=== PATIENT | female | born 1955 | race Asian ===

== ENCOUNTER 2016-10-19 20:59 | Emergency (ER) | payer OTHER ==
[2016-10-19 21:51] LABS: BASO # 0.1 x10^3/uL (0.0-0.2); BASO % 1 % (0-3); EOS % 2 % (0-3); HEMATOCRIT 35.5 % (36.0-47.0); HEMOGLOBIN 12.1 g/dL (12.0-15.5); LYMPH # 2.2 x10^3/uL (1.0-4.8); LYMPH % 23 % (24-48); MEAN CORPUSCULAR HEMOGLOBIN 28 pg (25-35); MEAN CORPUSCULAR HGB CONC 34 g/dL (31-37); MEAN CORPUSCULAR VOLUME 83 fL (79-100); MONO % 8 % (0-9); NEUT % 65 % (31-73); PLATELET COUNT 279 x10^3/uL (140-400); RED BLOOD COUNT 4.27 x10^6/uL (3.50-5.40); RED CELL DISTRIBUTION WIDTH 13.4 % (11.5-14.5); WHITE BLOOD COUNT 9.3 x10^3/uL (4.0-11.0)
[2016-10-19 21:52] LABS: BILIRUBIN,URINE NEGATIVE (NEG); GLUCOSE,URINE NEGATIVE (NEG); NITRITE,URINE NEGATIVE (NEG); PROTEIN,URINE NEGATIVE (NEG-TRACE); UROBILINOGEN,URINE 0.2 mg/dL (0.2 mg/dL)
[2016-10-19 22:04] LABS: CALCIUM 8.6 mg/dL (8.5-10.1); CREATININE 0.7 mg/dL (0.6-1.0); GFR 84.5; POTASSIUM 3.5 mmol/L (3.5-5.1)
[2016-10-19 22:05] LABS: BACTERIA,URINE 0 /HPF (0-FEW); RBC,URINE 0 /HPF (0-2); SQUAMOUS EPITHELIAL CELL,UR FEW /LPF
[2016-10-19 22:09] LABS: ALBUMIN 3.5 g/dL (3.4-5.0); ALBUMIN/GLOBULIN RATIO 0.9 (1.0-1.7); TOTAL BILIRUBIN 0.5 mg/dL (0.2-1.0); TOTAL PROTEIN 7.4 g/dL (6.4-8.2)
[2016-10-19] MEDS ORDERED: CONTRAST GIVEN MC PRN (22:15)
[2016-10-19] MEDS ORDERED: IOHEXOL 300 MG/ML 75 ML VIAL IV ONE (22:15)
--- NOTE | 2016-10-19 22:50 | RAD ---
Indication: Abdominal pain. Axial imaging through the abdomen and pelvis was performed after the administration of intravenous contrast. One or more of the following individualized dose reduction techniques were utilized for this examination: 1. Automated exposure control 2. Adjustment of the mA and/or kV according to patient size 3. Use of iterative reconstruction technique The lung bases are clear. The liver is unremarkable. The gallbladder is contracted. The pancreas and spleen are unremarkable. No adrenal mass is detected. Kidneys are unremarkable apart from tiny cortical low densities within the right kidney suggestive of cysts. The aorta is nonaneurysmal. The small and large bowel loops are normal caliber. No obstruction is seen. There is moderate stool in the right colon. The uterus and bladder are unremarkable. There is no ascites. No acute inflammatory process is identified. IMPRESSION: Essentially unremarkable CT of the abdomen and pelvis. No acute abnormality is detected. Electronically signed by: Owen Hassan MD (10/19/2016 10:47 PM) [facility]
--- NOTE | 2016-10-19 23:02 | EKG ---
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
[2016-10-19] MEDS ORDERED: OMEP20TA63 PO (23:59)
--- NOTE | 2016-10-19 23:59 | PHYS DOC ---
Past Medical History Past Medical History: Asthma, Diabetes-Type I, Hypertension Adult General Chief Complaint Chief Complaint: ABDOMINAL PAIN HPI HPI Patient is a 61 year old female with a history significant for hypertension and diabetes who presents here today complaining of midepigastric abdominal pain. Patient has any liver longer kidney problems. Patient has had no prior surgeries. Patient not smoke drink or do drugs. Patient has no known drug allergies. Patient has any fevers shakes chills nausea vomiting diarrhea. Patient reports having chronic cough. Patient has a dysuria frequency or urgency. Patient pressure less by mouth intake was one hour ago, her son reports that she ate rice with any problems. Review of systems: Constitutional: Denies fever or chills Eyes: Denies change in visual acuity, redness, or eye pain HENT: Denies nasal congestion or sore throat All other review systems are negative except as documented in the history of present illness portion. Physical exam: Constitutional: Cachectic appearing no acute distress, non-toxic appearance. HENT: Normocephalic, atraumatic, bilateral external ears normal, oropharynx moist, no oral exudates, nose normal. Eyes: PERRLA, EOMI, conjunctiva normal, no discharge. Neck: Normal range of motion, no tenderness, supple, no stridor Cardiovascular:Heart rate regular rhythm Lungs & Thorax: Bilateral breath sounds clear to auscultation Abdomen: Soft nondistended no rebound or guarding no tenderness at McBurney's point, Arteaga's sign, patient has normal active bowel sounds, she has mild diffuse tenderness to palpation. Patient with mild tenderness to palpation in midepigastric area. Skin: Warm, dry, no erythema, no rash. Back: No tenderness, no CVA tenderness. Patient has pain to his lower back or reports this is chronic. Patient has no new tenderness Extremities: No tenderness, no cyanosis, no clubbing, ROM intact, no edema. Neurologic: Alert and oriented X 3, normal motor function, normal sensory function, no focal deficits noted. Psychologic: Affect normal, judgement normal, mood normal. Patient's ER workup was significant for a CT scan that was unremarkable. No acute pathology. CBC CMP UA were all normal. Patient received Dilaudid and Zofran and IV fluids in the ER feels much improved. Assessment and plan Fadumo. Unclear etiology. Patient will be discharged home in stable condition. Patient be started on Prilosec for likely gastritis. Current Medications Current Medications Current Medications Medications (Trade) Dose Ordered Sig/Cruz Start Time Stop Time Status Last Admin Dose Admin Info (Do NOT chart on this entry -- for MONITORING) 1 each PRN DAILY PRN 10/19/16 22:15 10/21/16 22:14 Iohexol (Omnipaque 300 Mg/ml) 75 ml 1X ONCE 10/19/16 22:15 10/19/16 22:16 DC 10/19/16 22:37 75 ML Allergies Allergies Allergies Coded Allergies Type Severity Reaction Last Updated Verified No Known Drug Allergies 10/19/16 No Current Patient Data Vital Signs Vital Signs Date Time Temp Pulse Resp B/P (MAP) Pulse Ox O2 Delivery O2 Flow Rate FiO2 10/19/16 23:23 98.4 102 18 138/74 (95) 98 Room Air 98.4 Lab Values Laboratory Tests Test 10/19/16 21:30 White Blood Count 9.3 x10^3/uL (4.0-11.0) Red Blood Count 4.27 x10^6/uL (3.50-5.40) Hemoglobin 12.1 g/dL (12.0-15.5) Hematocrit 35.5 % (36.0-47.0) L Mean Corpuscular Volume 83 fL (79-100) Mean Corpuscular Hemoglobin 28 pg (25-35) Mean Corpuscular Hemoglobin Concent 34 g/dL (31-37) Red Cell Distribution Width 13.4 % (11.5-14.5) Platelet Count 279 x10^3/uL (140-400) Neutrophils (%) (Auto) 65 % (31-73) Lymphocytes (%) (Auto) 23 % (24-48) L Monocytes (%) (Auto) 8 % (0-9) Eosinophils (%) (Auto) 2 % (0-3) Basophils (%) (Auto) 1 % (0-3) Neutrophils # (Auto) 6.1 x10^3uL (1.8-7.7) Lymphocytes # (Auto) 2.2 x10^3/uL (1.0-4.8) Monocytes # (Auto) 0.8 x10^3/uL (0.0-1.1) Eosinophils # (Auto) 0.2 x10^3/uL (0.0-0.7) Basophils # (Auto) 0.1 x10^3/uL (0.0-0.2) Urine Collection Type Unknown Urine Color Yellow Urine Clarity Clear Urine pH 6.0 Urine Specific [place] <=1.005 Urine Protein Negative mg/dL (NEG-TRACE) Urine Glucose (UA) Negative mg/dL (NEG) Urine Ketones (Stick) Negative mg/dL (NEG) Urine Blood Negative (NEG) Urine Nitrite Negative (NEG) Urine Bilirubin Negative (NEG) Urine Urobilinogen Dipstick 0.2 mg/dL (0.2 mg/dL) Urine Leukocyte Esterase Moderate (NEG) Urine RBC 0 /HPF (0-2) Urine WBC 1-4 /HPF (0-4) Urine Squamous Epithelial Cells Few /LPF Urine Bacteria 0 /HPF (0-FEW) Sodium Level 140 mmol/L (136-145) Potassium Level 3.5 mmol/L (3.5-5.1) Chloride Level 104 mmol/L (98-107) Carbon Dioxide Level 24 mmol/L (21-32) Anion Gap 12 (6-14) Blood Urea Nitrogen 8 mg/dL (7-20) Creatinine 0.7 mg/dL (0.6-1.0) Estimated GFR (Cockcroft-Gault) 84.5 BUN/Creatinine Ratio 11 (6-20) Glucose Level 209 mg/dL (70-99) H Calcium Level 8.6 mg/dL (8.5-10.1) Total Bilirubin 0.5 mg/dL (0.2-1.0) Aspartate Amino Transferase (AST) 19 U/L (15-37) Alanine Aminotransferase (ALT) 17 U/L (14-59) Alkaline Phosphatase 102 U/L (46-116) Troponin I Quantitative < 0.017 ng/mL (0.000-0.055) Total Protein 7.4 g/dL (6.4-8.2) Albumin 3.5 g/dL (3.4-5.0) Albumin/Globulin Ratio 0.9 (1.0-1.7) L Lipase 252 U/L (73-393) Laboratory Tests 10/19/16 21:30 Laboratory Tests 10/19/16 21:30 EKG EKG [] Radiology/Procedures Radiology/Procedures [] Course & Med Decision Making Course & Med Decision Making Pertinent Labs and Imaging studies reviewed. (See chart for details) [] Dragon Disclaimer Dragon Disclaimer This electronic medical record was generated, in whole or in part, using a voice recognition dictation system. Departure Departure Impression: Primary Impression: Gastritis Additional Impression: Abdominal pain Disposition: HOME, SELF-CARE Condition: IMPROVED Referrals: NANDO PACKER MD (PCP) Patient Instructions: Abdominal Pain, Gastritis, Adult, Ctgs-[id number] Scripts Omeprazole Magnesium (PRILOSEC OTC) 20 Mg Tablet.dr 1 TAB PO DAILY, #30 TAB 3 Refills Prov: CORDELIA SHERMAN MD 10/19/16 Problem Qualifiers CORDELIA SHERMAN MD Oct 19, 2016 23:59
[2016-10-20 00:07] VITALS: BP 150/77
== END 2016-10-20 00:09 | disposition home or self-care (01) ==
LOC: ER 20:59
DX: K29.70 Gastritis, unspecified, without bleeding (principal); E10.9 Type 1 diabetes mellitus without complications; I10 Essential (primary) hypertension; J45.909 Unspecified asthma, uncomplicated
CPT/HCPCS: 36415; 74177; 80053; 81001; 83690; 84484; 85025; 87086; 93005; 99285; Q9967

== ENCOUNTER 2017-02-18 14:13 | Emergency (ER) | payer OTHER ==
[~2017-02-18] VITALS: Ht 152.4 cm; Wt 63.5 kg
[~2017-02-18 14:13] MED LIST: OMEP20TA63 PO
[2017-02-18 14:38] VITALS: BP 171/82
--- NOTE | 2017-02-18 15:13 | RAD ---
Indication: Lateral pain after a fall. Technique: 3 views of the right foot are submitted for review. No comparison is available. Findings: There is a subtle linear lucency in the base of the fifth metatarsal, could represent nutrient channel although nondisplaced fracture is not excluded. Please correlate with symptoms. If strong clinical suspicion, short term follow-up can be considered. Otherwise, no fracture or dislocation is apparent. Impression: Suspected subtle acute traumatic fracture of the base of the fifth metatarsal.
--- NOTE | 2017-02-18 15:42 | PHYS DOC ---
Past Medical History Past Medical History: Asthma, Diabetes-Type I, Hypertension Past Surgical History: No Surgical History Alcohol Use: Occasionally Drug Use: None Adult General Chief Complaint Chief Complaint: LOWEREXTREMITY INJURY [facility] HPI Patient is a 61 year old female who presents with right foot pain that began after a fall today. They did use ice to control pain and swelling and presented to the ED. Review of Systems Review of Systems Constitutional: Denies fever or chills [] Respiratory: Denies cough or shortness of breath [] Cardiovascular: No additional information not addressed in HPI [] Musculoskeletal: see HPI Integument: Denies rash or skin lesions [] Neurologic: Denies headache, focal weakness or sensory changes [] Endocrine: Denies polyuria or polydipsia [] All other systems were reviewed and found to be within normal limits, except as documented in this note. Allergies Allergies Allergies Coded Allergies Type Severity Reaction Last Updated Verified No Known Drug Allergies 10/19/16 No Physical Exam Physical Exam Constitutional: Well developed, well nourished, no acute distress, non-toxic appearance. [] Cardiovascular:Heart rate regular rhythm, no murmur [] Lungs & Thorax: Bilateral breath sounds clear to auscultation [] Abdomen: Bowel sounds normal, soft, no tenderness, no masses, no pulsatile masses. [] Extremities: There is erythema and mild swelling to the base of the fifth metatarsal, range of motion is limited due to pain, Neurologic: Alert and oriented X 3, normal motor function, normal sensory function, no focal deficits noted. [] Psychologic: Affect normal, judgement normal, mood normal. [] Current Patient Data Vital Signs Vital Signs Date Time Temp Pulse Resp B/P (MAP) Pulse Ox O2 Delivery O2 Flow Rate FiO2 02/18/17 14:38 98.4 115 18 100 Room Air 98.4 EKG EKG [] Radiology/Procedures Radiology/Procedures []PATIENT: ADRIEN CEDENO ACCOUNT: [id number] : 1955 LOCATION: ER AGE: 61 SEX: F EXAM STATUS: REG ER ORD. PHYSICIAN: ALL BLANDON APRN REASON: fell PROCEDURE: FOOT RIGHT 3V Indication: Lateral pain after a fall. Technique: 3 views of the right foot are submitted for review. No comparison is available. Findings: There is a subtle linear lucency in the base of the fifth metatarsal, could represent nutrient channel although nondisplaced fracture is not excluded. Please correlate with symptoms. If strong clinical suspicion, short term follow-up can be considered. Otherwise, no fracture or dislocation is apparent. Impression: Suspected subtle acute traumatic fracture of the base of the fifth metatarsal. DICTATED and SIGNED BY: GREGORY VALDES MD DATE: 02/18/17 1433 CC: ALL BLANDON APRN; NANDO PACKER MD; NON,STAFF ~ Course & Med Decision Making Course & Med Decision Making Pertinent Labs and Imaging studies reviewed. (See chart for details) []1. Metatarsal fracture Your foot has been placed in a postop shoe. You've also been given a small amount of pain medication. Do not drive or operate heavy machinery while taking this medication. Follow-up with your primary care provider or a genetic technologist in 3 days for a follow-up check on your fracture. Dragon Disclaimer Dragon Disclaimer This electronic medical record was generated, in whole or in part, using a voice recognition dictation system. Departure Departure Referrals: NANDO PACKER MD (PCP) Scripts Hydrocodone/Apap 5-325 (NORCO 5-325 TABLET) 1 Each Tablet 1 TAB PO PRN Q6HRS Y for PAIN, #10 TAB 0 Refills Prov: ALL BLANDON APRN 02/18/17 ALL BLANDON APRN Feb 18, 2017 15:42
[2017-02-18] MEDS ORDERED: HYDR-971 PO (15:44)
== END 2017-02-18 15:50 | disposition home or self-care (01) ==
LOC: ER 14:13
DX: S92.351A Displaced fracture of fifth metatarsal bone, right foot, initial encounter for closed fracture (principal); J45.909 Unspecified asthma, uncomplicated; E10.9 Type 1 diabetes mellitus without complications; I10 Essential (primary) hypertension; W18.39XA Other fall on same level, initial encounter; Y93.89 Activity, other specified; Y92.89 Other specified places as the place of occurrence of the external cause; Y99.8 Other external cause status
CPT/HCPCS: 73630; 99284

== ENCOUNTER 2017-03-03 12:19 | Emergency (ER) | payer OTHER ==
[2017-03-03] MEDS: IBUPROFEN 400 MG TABLET. PO (12:54)
[2017-03-03] MEDS: HYDROcodone/APAP 5/325MG 1 TAB TABLET PO (12:55)
[2017-03-03] MEDS ORDERED: DEXAMETHASONE 4 MG TABLET PO (15:00)
== END 2017-03-03 14:58 | disposition home or self-care (01) ==
LOC: ER 12:19
DX: M25.531 Pain in right wrist (principal); M25.532 Pain in left wrist; M79.632 Pain in left forearm; M79.631 Pain in right forearm; I10 Essential (primary) hypertension; E10.9 Type 1 diabetes mellitus without complications; J45.909 Unspecified asthma, uncomplicated; W18.30XA Fall on same level, unspecified, initial encounter; Y93.89 Activity, other specified; Y99.8 Other external cause status; Y92.89 Other specified places as the place of occurrence of the external cause
CPT/HCPCS: 73110; 73130; 99284

== ENCOUNTER 2017-09-03 22:44 | Inpatient (IN) | payer OTHER ==
[2017-09-03] MEDS: IV NORMAL SALINE 1000ML BAG 1,000 ML IV (23:55)
[2017-09-04 00:10] LABS: BASO # 0.1 x10^3/uL (0.0-0.2); BASO % 1 % (0-3); EOS % 0 % (0-3); HEMATOCRIT 35.2 % (36.0-47.0); HEMOGLOBIN 12.1 g/dL (12.0-15.5); LYMPH # 1.2 x10^3/uL (1.0-4.8); LYMPH % 6 % (24-48); MEAN CORPUSCULAR HEMOGLOBIN 28 pg (25-35); MEAN CORPUSCULAR HGB CONC 34 g/dL (31-37); MEAN CORPUSCULAR VOLUME 83 fL (79-100); MONO # 1.5 x10^3/uL (0.0-1.1); MONO % 8 % (0-9); NEUT # 15.6 x10^3uL (1.8-7.7); NEUT % 85 % (31-73); PLATELET COUNT 258 x10^3/uL (140-400); RED BLOOD COUNT 4.26 x10^6/uL (3.50-5.40); RED CELL DISTRIBUTION WIDTH 13.2 % (11.5-14.5); WHITE BLOOD COUNT 18.5 x10^3/uL (4.0-11.0)
[2017-09-04] MEDS: DEXAMETHASONE SOD PHOS 20 MG/5 ML VIAL. IV (00:12)
[2017-09-04 00:13] LABS: ADD MAN DIFF? YES
[2017-09-04 00:21] LABS: ANION GAP 11 (6-14); BLOOD UREA NITROGEN 10 mg/dL (7-20); CALCIUM 8.5 mg/dL (8.5-10.1); CARBON DIOXIDE 23 mmol/L (21-32); CHLORIDE 100 mmol/L (98-107); CREATININE 0.7 mg/dL (0.6-1.0); GFR 84.2; GLUCOSE 121 mg/dL (70-99); SODIUM 134 mmol/L (136-145)
[2017-09-04] MEDS: IV NORMAL SALINE 1000ML BAG 1,000 ML IV ×3 (00:58→05:47)
[2017-09-04] MEDS: ACETAMINOPHEN 325 MG TABLET. PO ×2 (01:48→13:32)
[2017-09-04 01:51] LABS: % BANDS 8 % (0-9); % BASOS 1 % (0-3); % LYMPHS 6 % (24-48); % MONOS 2 % (0-10); % SEGS 83 % (35-66); PLT ESTIMATE ADEQUATE (ADEQUATE)
[2017-09-04] MEDS ORDERED: ONDANSETRON PF 4 MG/2 ML VIAL. IV (03:30)
[2017-09-04] MEDS ORDERED: CONTRAST GIVEN. MC (04:00)
[2017-09-04] MEDS: AZITHROMYCIN 250 MG TABLET. PO (04:01)
[2017-09-04] MEDS: IOHEXOL 300 MG/ML 100ML VIAL. IV (04:10)
[2017-09-04 04:21] LABS: LACTIC ACID 0.9 mmol/L (0.4-2.0)
[2017-09-04 07:15] LABS: NEGATIVE OBC STREP NEG; POSITIVE OBC STREP POS
[2017-09-04] MEDS: IPRATRPIUM/ALBUTEROL 0.5/2.5MG 3 ML NEBU. NEB ×2 (11:16→15:30)
[2017-09-04] MEDS: BENZONATATE 100 MG CAPSULE. PO (13:32)
[2017-09-04] MEDS: CETIRIZINE HCL 10 MG TABLET. PO (13:32)
[2017-09-04] MEDS: CAPSAICIN 0.025% TOPICAL CREAM 60GM TUBE. TP (13:33)
[2017-09-04] MEDS ORDERED: MONTELUKAST SODIUM 10 MG TABLET. PO (21:00)
[2017-09-04] MEDS ORDERED: KETOTIFEN FUMARATE 0.025% OPHTH SOLUTION BOTTLE. OU (21:00)
[2017-09-04] MEDS ORDERED: SIMVASTATIN 10 MG TABLET PO (21:00)
[2017-09-05] MEDS ORDERED: ASPIRIN CHEWABLE 81 MG TABLET. PO (08:00)
[2017-09-05] MEDS ORDERED: cefTRIAXone IV Push 1 GM VIAL. IVP (09:00)
[2017-09-05] MEDS ORDERED: AZITHROMYCIN 500 MG in IV NORMAL SALINE 250ML 250 ML IV (09:00)
[2017-09-06] MEDS ORDERED: metFORMIN 500 MG TABLET PO (09:00)
== END 2017-09-04 18:08 | disposition home or self-care (01) | DRG 871 ==
LOC: 5 NORTH 09-04 03:04 → ER 22:44
DX: A41.9 Sepsis, unspecified organism (principal); J18.9 Pneumonia, unspecified organism; E87.1 Hypo-osmolality and hyponatremia; J45.901 Unspecified asthma with (acute) exacerbation; J02.9 Acute pharyngitis, unspecified; M79.1 Myalgia; R00.0 Tachycardia, unspecified; Z82.49 Family history of ischemic heart disease and other diseases of the circulatory system
CPT/HCPCS: 36415; 71045; 71275; 80048; 83605; 85007; 85025; 87040; 87070; 87880; 93005; 94640; 94760; 96361; 96374; 96375; 99285; 99285-25; J0690; J1100; J7030; J7620; Q0144; Q9967

== ENCOUNTER 2018-01-23 12:45 | Emergency (ER) | payer OTHER ==
[~2018-01-23] VITALS: Ht 152.4 cm; Wt 48.5 kg
[~2018-01-23 12:45] MED LIST changes: +ACET1TAB33 PO; +HYDR-971 PO; +MENT56CR TP
[2018-01-23 13:33] LABS: BASO # 0.1 x10^3/uL (0.0-0.2); BASO % 1 % (0-3); EOS # 0.1 x10^3/uL (0.0-0.7); EOS % 1 % (0-3); HEMATOCRIT 35.8 % (36.0-47.0); HEMOGLOBIN 12.4 g/dL (12.0-15.5); LYMPH # 1.4 x10^3/uL (1.0-4.8); LYMPH % 13 % (24-48); MEAN CORPUSCULAR HEMOGLOBIN 28 pg (25-35); MEAN CORPUSCULAR HGB CONC 35 g/dL (31-37); MEAN CORPUSCULAR VOLUME 81 fL (79-100); MONO # 0.8 x10^3/uL (0.0-1.1); MONO % 8 % (0-9); NEUT % 77 % (31-73); PLATELET COUNT 352 x10^3/uL (140-400); RED BLOOD COUNT 4.45 x10^6/uL (3.50-5.40); RED CELL DISTRIBUTION WIDTH 13.3 % (11.5-14.5); WHITE BLOOD COUNT 10.3 x10^3/uL (4.0-11.0)
[2018-01-23 13:44] LABS: CALCIUM 8.6 mg/dL (8.5-10.1); CREATININE 0.7 mg/dL (0.6-1.0); GFR 84.2; POTASSIUM 3.9 mmol/L (3.5-5.1)
--- NOTE | 2018-01-23 13:52 | PHYS DOC ---
Past Medical History Past Medical History: Asthma, Diabetes-Type II, Hypertension Additional Past Medical Histor: KIDNEYS? Past Surgical History: No Surgical History, Other Additional Past Surgical Histo: ARM Alcohol Use: None Drug Use: None Adult General Chief Complaint Chief Complaint: COUGH HPI HPI Patient is a 62-year-old female who presents with complaint of cough, congestion , shortness breath, sore throat and headache for the last 4-5 days. Patient indicates that cough has been productive sputum. Patient indicates that shortness of breath is worsened with exertion. Patient admits to soreness in her chest. She denies any vomiting or diarrhea. Symptoms are not improved with anything. Review of Systems Review of Systems Constitutional: Positive subjective fever[] HENT: Positive sore throat [] Respiratory: Positive cough and shortness of breath [] Cardiovascular: Positive chest soreness[] GI: Denies abdominal pain, nausea, vomiting or diarrhea [] Musculoskeletal: Complains of body aches[] Neurologic: Complains of headache[] All other systems were reviewed and found to be within normal limits, except as documented in this note. Current Medications Current Medications Current Medications Medications (Trade) Dose Ordered Sig/Cruz Start Time Stop Time Status Last Admin Dose Admin Info (CONTRAST GIVEN -- Rx MONITORING) 1 each PRN DAILY PRN 01/23/18 15:45 01/23/18 17:21 DC Iohexol (Omnipaque 300 Mg/ml) 75 ml 1X ONCE 01/23/18 16:00 01/23/18 16:01 DC 01/23/18 15:53 75 ML Allergies Allergies Allergies Coded Allergies Type Severity Reaction Last Updated Verified No Known Drug Allergies 10/19/16 No Physical Exam Physical Exam Constitutional: Well developed, well nourished, no acute distress, non-toxic appearance. [] HENT: Normocephalic, atraumatic, bilateral external ears normal, oropharynx moist, no oral exudates, nose normal. [] Eyes: PERRLA, EOMI, conjunctiva normal, no discharge. [] Neck: Normal range of motion, no tenderness, supple. [] Cardiovascular: Mildly tachycardic rate with regular rhythm [] Lungs & Thorax: There are fine rhonchi noted in the bilateral lung bases. Otherwise good air movement is noted throughout[] Abdomen: Bowel sounds normal, soft, no tenderness. [] Skin: Warm, dry, no erythema, no rash. [] Extremities: No tenderness, no cyanosis, no clubbing, ROM intact, no edema. [] Neurologic: Alert and oriented, no focal deficits noted. [] Current Patient Data Vital Signs Vital Signs Date Time Temp Pulse Resp B/P (MAP) Pulse Ox O2 Delivery O2 Flow Rate FiO2 01/23/18 17:06 98.4 109 18 142/75 (97) 97 Room Air 98.4 Lab Values Laboratory Tests Test 01/23/18 13:19 01/23/18 13:46 01/23/18 13:47 01/23/18 15:30 White Blood Count 10.3 x10^3/uL (4.0-11.0) Red Blood Count 4.45 x10^6/uL (3.50-5.40) Hemoglobin 12.4 g/dL (12.0-15.5) Hematocrit 35.8 % (36.0-47.0) L Mean Corpuscular Volume 81 fL (79-100) Mean Corpuscular Hemoglobin 28 pg (25-35) Mean Corpuscular Hemoglobin Concent 35 g/dL (31-37) Red Cell Distribution Width 13.3 % (11.5-14.5) Platelet Count 352 x10^3/uL (140-400) Neutrophils (%) (Auto) 77 % (31-73) H Lymphocytes (%) (Auto) 13 % (24-48) L Monocytes (%) (Auto) 8 % (0-9) Eosinophils (%) (Auto) 1 % (0-3) Basophils (%) (Auto) 1 % (0-3) Neutrophils # (Auto) 8.0 x10^3uL (1.8-7.7) H Lymphocytes # (Auto) 1.4 x10^3/uL (1.0-4.8) Monocytes # (Auto) 0.8 x10^3/uL (0.0-1.1) Eosinophils # (Auto) 0.1 x10^3/uL (0.0-0.7) Basophils # (Auto) 0.1 x10^3/uL (0.0-0.2) D-Dimer (Molly) 1.32 ug/mlFEU (0.00-0.50) H Sodium Level 139 mmol/L (136-145) Potassium Level 3.9 mmol/L (3.5-5.1) Chloride Level 102 mmol/L (98-107) Carbon Dioxide Level 25 mmol/L (21-32) Anion Gap 12 (6-14) Blood Urea Nitrogen 11 mg/dL (7-20) Creatinine 0.7 mg/dL (0.6-1.0) Estimated GFR (Cockcroft-Gault) 84.2 BUN/Creatinine Ratio 16 (6-20) Glucose Level 250 mg/dL (70-99) H Calcium Level 8.6 mg/dL (8.5-10.1) Total Bilirubin 0.4 mg/dL (0.2-1.0) Aspartate Amino Transferase (AST) 18 U/L (15-37) Alanine Aminotransferase (ALT) 19 U/L (14-59) Alkaline Phosphatase 118 U/L (46-116) H Troponin I Quantitative < 0.017 ng/mL (0.000-0.055) WW-Gay-B-Type Natriuretic Peptide 13 pg/mL (0-124) Total Protein 7.5 g/dL (6.4-8.2) Albumin 3.5 g/dL (3.4-5.0) Albumin/Globulin Ratio 0.9 (1.0-1.7) L Group A Streptococcus Rapid Negative (NEGATIVE) Influenza Type A Antigen Negative (NEGATIVE) Influenza Type B Antigen Negative (NEGATIVE) Urine Collection Type Unknown Urine Color Yellow Urine Clarity Clear Urine pH 6.0 Urine Specific [place] 1.010 Urine Protein Negative mg/dL (NEG-TRACE) Urine Glucose (UA) 100 mg/dL (NEG) Urine Ketones (Stick) Negative mg/dL (NEG) Urine Blood Negative (NEG) Urine Nitrite Negative (NEG) Urine Bilirubin Negative (NEG) Urine Urobilinogen Dipstick 0.2 mg/dL (0.2 mg/dL) Urine Leukocyte Esterase Negative (NEG) Urine RBC 0 /HPF (0-2) Urine WBC Occ /HPF (0-4) Urine Squamous Epithelial Cells Few /LPF Urine Bacteria 0 /HPF (0-FEW) Urine Mucus Slight /LPF Laboratory Tests 01/23/18 13:19 Laboratory Tests 01/23/18 13:19 EKG EKG [] Interpretation Time: Mildly tachycardic rate with regular rhythm. Heart rate of 106. Radiology/Procedures Radiology/Procedures [] Impressions: PROCEDURE: CT ANGIOGRAPHY CHEST CT pulmonary angiogram with intravenous contrast History: Shortness of breath. Possible pulmonary embolism Comparison: Same examination September 04, 2017. Technique: CT angiogram of the chest with attention to the pulmonary arteries was performed after the administration of intravenous contrast, 75 mL Omnipaque-300. Axial 2-D reconstructions were obtained. Coronal 3-D MIPS were obtained of the chest. Exposure: One or more of the following individualized dose reduction techniques were utilized for this examination: 1. Automated exposure control 2. Adjustment of the mA and/or kV according to patient size 3. Use of iterative reconstruction technique Findings: There is motion artifact at multiple levels. Both upper lobe pulmonary arteries are suboptimally opacified, presumably secondary to phase of bolus and time of scanning; main pulmonary artery as well as the lower lobe pulmonary arteries and right middle lobe pulmonary arteries are adequately opacified. There is no evidence of pulmonary embolism. Trachea and mainstem bronchi appear patent. Evaluation of thyroid is limited secondary to motion. No acute airspace disease is identified. No pneumothorax or pleural effusion is seen. No mediastinal lymphadenopathy is seen. Thoracic aorta has normal caliber. Heart and pericardium are unremarkable. Left upper lobe demonstrates small 3 mm nonspecific soft tissue pulmonary nodule (series 3 image 65), unchanged. Lower lobe demonstrates small soft tissue pulmonary nodule measuring 3 mm (series 3 image 74), not definitely seen on previous study, may have been obscured on previous study. Mild emphysema seen. Impression: 1. Limited examination, especially of upper lobe pulmonary arteries. No pulmonary embolism identified 2. No acute airspace disease identified. 3. Mild pulmonary emphysema. 4. Small soft tissue pulmonary nodules. By Fleischner Society 2017 guidelines, consider follow-up chest CT without contrast in 12 months. Electronically signed by: Beltran Vargas MD (01/23/2018 4:15 PM) [place] [id number] Course & Med Decision Making Course & Med Decision Making Pertinent Labs and Imaging studies reviewed. (See chart for details) [] Dragon Disclaimer Dragon Disclaimer This electronic medical record was generated, in whole or in part, using a voice recognition dictation system. Departure Departure Impression: Primary Impression: Bronchitis, acute Disposition: 01 HOME, SELF-CARE Condition: STABLE Referrals: NANDO PACKER MD (PCP) Patient Instructions: Acute Bronchitis Scripts Azithromycin (ZITHROMAX) 250 Mg Tablet 1 PKG PO UD, #6 TAB Prov: STEPHANIE ROWLAND Jr. DO 01/23/18 Problem Qualifiers Primary Impression: Bronchitis, acute Bronchitis organism: unspecified organism Qualified Codes: J20.9 - Acute bronchitis, unspecified STEPHANIE ROWLAND Jr. DO Jan 23, 2018 13:52
--- NOTE | 2018-01-23 13:52 | RAD ---
PA and lateral chest radiograph. History: Cough. Comparison: September 04, 2017. Findings: Cardiomediastinal silhouette is within normal limits for size. Bilateral lung wood appear clear without evidence of infiltrate, effusion, or pneumothorax. Impression: 1. No acute cardiopulmonary process. Electronically signed by: Beltran Vargas MD (01/23/2018 1:49 PM) [place] [id number]
[2018-01-23 13:53] LABS: ALBUMIN 3.5 g/dL (3.4-5.0); ALBUMIN/GLOBULIN RATIO 0.9 (1.0-1.7); TOTAL BILIRUBIN 0.4 mg/dL (0.2-1.0); TOTAL PROTEIN 7.5 g/dL (6.4-8.2)
--- NOTE | 2018-01-23 13:57 | EKG ---
[facility] [address] [place] [address] Test Date: 2018-01-23 Test Time: 13:31:12 Pat Name: ADRIEN CEDENO Department: Room: Gender: F Slackman: : 1955 Requested By: STEPHANIE ROWLAND Order Number: [id number] Reading MD: Barney Ríos Measurements Intervals [place] Rate: 106 P: 62 MN: 146 QRS: -27 QRSD: 78 T: 48 QT: 316 QTc: 421 Interpretive Statements SINUS TACHYCARDIA LEFTWARD AXIS QRS(T) CONTOUR ABNORMALITY CONSISTENT WITH INFERIOR INFARCT PROBABLY OLD ABNORMAL ECG Electronically Signed On 01-24-2018 14:29:20 [employer]UTIONS ENGINEER by Barney Ríos
[2018-01-23 14:35] LABS: INFLUENZA A PATIENT NEGATIVE (NEGATIVE); INFLUENZA B PATIENT NEGATIVE (NEGATIVE)
[2018-01-23 15:44] LABS: BILIRUBIN,URINE NEGATIVE (NEG); CLARITY,URINE CLEAR; COLOR,URINE YELLOW; NITRITE,URINE NEGATIVE (NEG); PROTEIN,URINE NEGATIVE (NEG-TRACE); UROBILINOGEN,URINE 0.2 mg/dL (0.2 mg/dL)
[2018-01-23] MEDS ORDERED: CONTRAST GIVEN. MC PRN (15:45)
[2018-01-23] MEDS: IOHEXOL 300 MG/ML 100ML VIAL. IV ONE (15:53)
[2018-01-23 16:08] LABS: BACTERIA,URINE 0 /HPF (0-FEW); RBC,URINE 0 /HPF (0-2); SQUAMOUS EPITHELIAL CELL,UR FEW /LPF; WBC,URINE OCC /HPF (0-4)
--- NOTE | 2018-01-23 16:18 | RAD ---
CT pulmonary angiogram with intravenous contrast History: Shortness of breath. Possible pulmonary embolism Comparison: Same examination September 04, 2017. Technique: CT angiogram of the chest with attention to the pulmonary arteries was performed after the administration of intravenous contrast, 75 mL Omnipaque-300. Axial 2-D reconstructions were obtained. Coronal 3-D MIPS were obtained of the chest. Exposure: One or more of the following individualized dose reduction techniques were utilized for this examination: 1. Automated exposure control 2. Adjustment of the mA and/or kV according to patient size 3. Use of iterative reconstruction technique Findings: There is motion artifact at multiple levels. Both upper lobe pulmonary arteries are suboptimally opacified, presumably secondary to phase of bolus and time of scanning; main pulmonary artery as well as the lower lobe pulmonary arteries and right middle lobe pulmonary arteries are adequately opacified. There is no evidence of pulmonary embolism. Trachea and mainstem bronchi appear patent. Evaluation of thyroid is limited secondary to motion. No acute airspace disease is identified. No pneumothorax or pleural effusion is seen. No mediastinal lymphadenopathy is seen. Thoracic aorta has normal caliber. Heart and pericardium are unremarkable. Left upper lobe demonstrates small 3 mm nonspecific soft tissue pulmonary nodule (series 3 image 65), unchanged. Lower lobe demonstrates small soft tissue pulmonary nodule measuring 3 mm (series 3 image 74), not definitely seen on previous study, may have been obscured on previous study. Mild emphysema seen. Impression: 1. Limited examination, especially of upper lobe pulmonary arteries. No pulmonary embolism identified 2. No acute airspace disease identified. 3. Mild pulmonary emphysema. 4. Small soft tissue pulmonary nodules. By Fleischner Society 2017 guidelines, consider follow-up chest CT without contrast in 12 months. Electronically signed by: Beltran Vargas MD (01/23/2018 4:15 PM) [place] [id number]
[2018-01-23] MEDS ORDERED: AZIT250T PO (16:43)
[2018-01-23 17:06] VITALS: BP 142/75
== END 2018-01-23 17:18 | disposition home or self-care (01) ==
LOC: ER 12:45
DX: J20.9 Acute bronchitis, unspecified (principal); R51 Headache; R00.0 Tachycardia, unspecified; M79.18 Myalgia, other site; J45.909 Unspecified asthma, uncomplicated; E11.9 Type 2 diabetes mellitus without complications; I10 Essential (primary) hypertension
CPT/HCPCS: 36415; 71046; 71275; 80053; 81001; 83880; 84484; 85025; 85379; 87040; 87070; 87804; 87880; 93005; 99285; Q9967

== ENCOUNTER 2018-04-06 13:24 | Emergency (ER) | payer OTHER ==
[~2018-04-06] VITALS: Ht 149.9 cm; Wt 48.5 kg
[~2018-04-06 13:24] MED LIST changes: +AZIT250T PO; +HYDR-3164 PO; -HYDR-971 PO
[2018-04-06 13:51] VITALS: BP 142/75
[2018-04-06] MEDS ORDERED: POLY10DR3 EACHEYE (13:54)
--- NOTE | 2018-04-06 13:54 | PHYS DOC ---
Past Medical History Past Medical History: Asthma, Diabetes-Type II, Hypertension Additional Past Medical Histor: KIDNEYS? Past Surgical History: No Surgical History, Other Additional Past Surgical Histo: ARM Alcohol Use: None Drug Use: None Adult General Chief Complaint Chief Complaint: EYE PROBLEMS HPI HPI Patient is a 63 year old female who presents with right eye conjunctival redness, itching, discharge and crusting this morning times one day. Review of Systems Review of Systems Constitutional: Denies fever or chills [] Eyes: Denies change in visual acuity, + redness, or eye pain [] HENT: Denies nasal congestion or sore throat [] Respiratory: Denies cough or shortness of breath [] Cardiovascular: No additional information not addressed in HPI [] GI: Denies abdominal pain, nausea, vomiting, bloody stools or diarrhea [] : Denies dysuria or hematuria [] Musculoskeletal: Denies back pain or joint pain [] Integument: Denies rash or skin lesions [] Neurologic: Denies headache, focal weakness or sensory changes [] Endocrine: Denies polyuria or polydipsia [] All other systems were reviewed and found to be within normal limits, except as documented in this note. Allergies Allergies Allergies Coded Allergies Type Severity Reaction Last Updated Verified No Known Drug Allergies 10/19/16 No Physical Exam Physical Exam Constitutional: Well developed, well nourished, no acute distress, non-toxic appearance. [] HENT: Normocephalic, atraumatic, bilateral external ears normal, oropharynx moist, no oral exudates, nose normal. [] Eyes: PERRLA, EOMI, conjunctiva red, purulent discharge. [] Neck: Normal range of motion, no tenderness, supple, no stridor. [] Cardiovascular:Heart rate regular rhythm, no murmur [] Lungs & Thorax: Bilateral breath sounds clear to auscultation [] Abdomen: Bowel sounds normal, soft, no tenderness, no masses, no pulsatile masses. [] Skin: Warm, dry, no erythema, no rash. [] Back: No tenderness, no CVA tenderness. [] Extremities: No tenderness, no cyanosis, no clubbing, ROM intact, no edema. [] Neurologic: Alert and oriented X 3, normal motor function, normal sensory function, no focal deficits noted. [] Psychologic: Affect normal, judgement normal, mood normal. [] EKG EKG [] Radiology/Procedures Radiology/Procedures [] Course & Med Decision Making Course & Med Decision Making Patient is a 63 year old female who presents with right eye conjunctival redness, itching, discharge and crusting this morning times one day. Alert and oriented. Afebrile. No recent illness. Patient has purulent discharge to the right eye with right eye conjunctivae old redness. Patient's diagnosed with probable bacterial conjunctivitis. Patient is given an antibiotic eyedrops. Patient follow-up with her primary care states possible. Dragon Disclaimer Dragon Disclaimer This electronic medical record was generated, in whole or in part, using a voice recognition dictation system. Departure Departure Impression: Primary Impression: Bacterial conjunctivitis Disposition: 01 HOME, SELF-CARE Condition: STABLE Referrals: NANDO PACKER MD (PCP) Patient Instructions: Conjunctivitis (Viral and Bacterial) Additional Instructions: Follow-up with primary care Dr. Silva. Use eyedrops as prescribed. Scripts Polymyxin B Sulf/Trimethoprim (POLYMYXIN B-TMP EYE DROPS) 10 Ml Drops 1 DROP EACHEYE QID for 7 Days, #10 ML Prov: KVNG BORDEN CANNED FOOD RECONDITIONING INSPECTOR 04/06/18 KVNG BORDEN [employer] FOOD RECONDITIONING INSPECTOR Apr 06, 2018 13:54
== END 2018-04-06 14:07 | disposition home or self-care (01) ==
LOC: ER 13:24
DX: H10.89 Other conjunctivitis (principal); B96.89 Other specified bacterial agents as the cause of diseases classified elsewhere; I10 Essential (primary) hypertension; E11.9 Type 2 diabetes mellitus without complications; J45.909 Unspecified asthma, uncomplicated
CPT/HCPCS: 99283

== ENCOUNTER 2019-03-06 11:08 | Emergency (ER) | payer OTHER ==
[~2019-03-06] VITALS: Ht 152.4 cm; Wt 56.7 kg
[~2019-03-06 11:08] MED LIST changes: +POLY10DR3 EACHEYE
[2019-03-06] MEDS ORDERED: FAMOTIDINE 20 MG/2 ML VIAL IVP ONE (12:00)
[2019-03-06] MEDS ORDERED: IV NORMAL SALINE 1000ML BAG 1,000 ML IV ONE (12:00)
[2019-03-06 12:10] LABS: BILIRUBIN,URINE NEGATIVE (NEG); CLARITY,URINE CLEAR; COLOR,URINE YELLOW; NITRITE,URINE NEGATIVE (NEG); PROTEIN,URINE NEGATIVE (NEG-TRACE); UROBILINOGEN,URINE 0.2 mg/dL (0.2 mg/dL)
[2019-03-06 12:18] LABS: SQUAMOUS EPITHELIAL CELL,UR FEW /LPF
[2019-03-06 12:19] LABS: BACTERIA,URINE FEW /HPF (0-FEW); RBC,URINE 0 /HPF (0-2); WBC,URINE RARE /HPF (0-4)
[2019-03-06 12:32] LABS: BASO # 0.1 x10^3/uL (0.0-0.2); BASO % 1 % (0-3); EOS # 0.1 x10^3/uL (0.0-0.7); EOS % 2 % (0-3); HEMATOCRIT 34.9 % (36.0-47.0); HEMOGLOBIN 11.8 g/dL (12.0-15.5); LYMPH # 1.3 x10^3/uL (1.0-4.8); LYMPH % 15 % (24-48); MEAN CORPUSCULAR HEMOGLOBIN 27 pg (25-35); MEAN CORPUSCULAR HGB CONC 34 g/dL (31-37); MEAN CORPUSCULAR VOLUME 81 fL (79-100); MONO # 0.6 x10^3/uL (0.0-1.1); MONO % 7 % (0-9); NEUT # 6.2 x10^3/uL (1.8-7.7); NEUT % 75 % (31-73); PLATELET COUNT 320 x10^3/uL (140-400); RED CELL DISTRIBUTION WIDTH 13.8 % (11.5-14.5); WHITE BLOOD COUNT 8.3 x10^3/uL (4.0-11.0)
[2019-03-06 12:47] LABS: CREATININE 0.6 mg/dL (0.6-1.0); GFR 100.3; POTASSIUM 3.8 mmol/L (3.5-5.1)
[2019-03-06 12:55] LABS: ALBUMIN 3.7 g/dL (3.4-5.0); ALBUMIN/GLOBULIN RATIO 0.9 (1.0-1.7); TOTAL BILIRUBIN 0.7 mg/dL (0.2-1.0)
--- NOTE | 2019-03-06 13:13 | RAD ---
EXAM: Abdomen sonogram. HISTORY: Pain. TECHNIQUE: Sonographic imaging of the abdomen was performed. COMPARISON: 10/19/2016. FINDINGS: The liver is normal in size. No focal hepatic lesion is seen. There is mild gallbladder wall thickening. There is suggestion of debris within the gallbladder neck. No convincing gallstone is seen. The common bile duct is normal in caliber. The kidneys are normal in size. There is mild right hydronephrosis. The pancreas, aorta and inferior vena cava are obscured due to bowel gas. The spleen is normal in size. IMPRESSION: 1. Mild gallbladder wall thickening. This may be due to slight gallbladder contraction or intrinsic liver disease. The possibility of cholecystitis is not completely excluded. There is suspected sludge within the gallbladder neck. 2. Mild right hydronephrosis. Electronically signed by: Elaine Carlson MD (03/06/2019 1:10 PM) [facility]
[2019-03-06] MEDS ORDERED: HYDR-3164 PO (14:53)
[2019-03-06] MEDS ORDERED: ONDA4TAB12 PO (14:53)
--- NOTE | 2019-03-06 14:54 | PHYS DOC ---
Past Medical History Past Medical History: Asthma, Diabetes-Type II, Hypertension Additional Past Medical Histor: KIDNEYS? Past Surgical History: No Surgical History, Other Additional Past Surgical Histo: ARM Alcohol Use: None Drug Use: None Adult General Chief Complaint Chief Complaint: ABDOMINAL PAIN HPI HPI Patient is a 63 year old female with history of hypertension, diabetes type 2, who presents to the ED today complaining of intermittent episodes of generalized abdominal pain with nausea vomiting and diarrhea that have been going on for 2-3 months. Patient reports she has followed up with the PCP and they've done lab work which was negative. Patient denies any exacerbating or relieving factors. Patient is Portuguese speaking and interpretation is provided by the grand daughter. Review of Systems Review of Systems Constitutional: Denies fever or chills [] Eyes: Denies change in visual acuity, redness, or eye pain [] HENT: Denies nasal congestion or sore throat [] Respiratory: Denies cough or shortness of breath [] Cardiovascular: No additional information not addressed in HPI [] GI: Reports generalized abdominal pain with nausea vomiting and diarrhea : Denies dysuria or hematuria [] Musculoskeletal: Denies back pain or joint pain [] Integument: Denies rash or skin lesions [] Neurologic: Denies headache, focal weakness or sensory changes [] All other systems were reviewed and found to be within normal limits, except as documented in this note. Current Medications Current Medications Current Medications Medications (Trade) Dose Ordered Sig/Cruz Start Time Stop Time Status Last Admin Dose Admin Famotidine (Pepcid Vial) 20 mg 1X ONCE 03/06/19 12:00 03/06/19 12:08 DC 03/06/19 12:24 20 MG Sodium Chloride 1,000 ml @ 1,000 mls/hr 1X ONCE 03/06/19 12:00 03/06/19 12:59 DC 03/06/19 12:23 1,000 MLS/HR Allergies Allergies Allergies Coded Allergies Type Severity Reaction Last Updated Verified No Known Drug Allergies 10/19/16 No Physical Exam Physical Exam Constitutional: Well developed, well nourished, no acute distress, non-toxic appearance. [] HENT: Normocephalic, atraumatic, bilateral external ears normal, oropharynx moist, no oral exudates, nose normal. [] Eyes: PERRLA, EOMI, conjunctiva normal, no discharge. [] Neck: Normal range of motion, no tenderness, supple, no stridor. [] Cardiovascular:Heart rate regular rhythm, no murmur [] Lungs & Thorax: Bilateral breath sounds clear to auscultation [] Abdomen: Bowel sounds normal, soft, no tenderness, no masses, no pulsatile masses. [] Skin: Warm, dry, no erythema, no rash. [] Back: No tenderness, no CVA tenderness. [] Extremities: No tenderness, no cyanosis, no clubbing, ROM intact, no edema. [] Neurologic: Alert and oriented X 3, normal motor function, normal sensory function, no focal deficits noted. [] Psychologic: Affect normal, judgement normal, mood normal. [] Current Patient Data Vital Signs Vital Signs Date Time Temp Pulse Resp B/P (MAP) Pulse Ox O2 Delivery O2 Flow Rate FiO2 03/06/19 11:38 98.0 111 20 152/89 (110) 97 Room Air 98.0 Lab Values Laboratory Tests Test 03/06/19 11:46 03/06/19 12:20 Urine Collection Type Unknown Urine Color Yellow Urine Clarity Clear Urine pH 6.0 Urine Specific [place] 1.010 Urine Protein Negative mg/dL (NEG-TRACE) Urine Glucose (UA) Negative mg/dL (NEG) Urine Ketones (Stick) Negative mg/dL (NEG) Urine Blood Negative (NEG) Urine Nitrite Negative (NEG) Urine Bilirubin Negative (NEG) Urine Urobilinogen Dipstick 0.2 mg/dL (0.2 mg/dL) Urine Leukocyte Esterase Negative (NEG) Urine RBC 0 /HPF (0-2) Urine WBC Rare /HPF (0-4) Urine Squamous Epithelial Cells Few /LPF Urine Bacteria Few /HPF (0-FEW) Urine Mucus Slight /LPF White Blood Count 8.3 x10^3/uL (4.0-11.0) Red Blood Count 4.30 x10^6/uL (3.50-5.40) Hemoglobin 11.8 g/dL (12.0-15.5) L Hematocrit 34.9 % (36.0-47.0) L Mean Corpuscular Volume 81 fL (79-100) Mean Corpuscular Hemoglobin 27 pg (25-35) Mean Corpuscular Hemoglobin Concent 34 g/dL (31-37) Red Cell Distribution Width 13.8 % (11.5-14.5) Platelet Count 320 x10^3/uL (140-400) Neutrophils (%) (Auto) 75 % (31-73) H Lymphocytes (%) (Auto) 15 % (24-48) L Monocytes (%) (Auto) 7 % (0-9) Eosinophils (%) (Auto) 2 % (0-3) Basophils (%) (Auto) 1 % (0-3) Neutrophils # (Auto) 6.2 x10^3/uL (1.8-7.7) Lymphocytes # (Auto) 1.3 x10^3/uL (1.0-4.8) Monocytes # (Auto) 0.6 x10^3/uL (0.0-1.1) Eosinophils # (Auto) 0.1 x10^3/uL (0.0-0.7) Basophils # (Auto) 0.1 x10^3/uL (0.0-0.2) Sodium Level 139 mmol/L (136-145) Potassium Level 3.8 mmol/L (3.5-5.1) Chloride Level 103 mmol/L (98-107) Carbon Dioxide Level 26 mmol/L (21-32) Anion Gap 10 (6-14) Blood Urea Nitrogen 5 mg/dL (7-20) L Creatinine 0.6 mg/dL (0.6-1.0) Estimated GFR (Cockcroft-Gault) 100.3 BUN/Creatinine Ratio 8 (6-20) Glucose Level 113 mg/dL (70-99) H Calcium Level 9.0 mg/dL (8.5-10.1) Total Bilirubin 0.7 mg/dL (0.2-1.0) Aspartate Amino Transferase (AST) 17 U/L (15-37) Alanine Aminotransferase (ALT) 28 U/L (14-59) Alkaline Phosphatase 107 U/L (46-116) Total Protein 8.0 g/dL (6.4-8.2) Albumin 3.7 g/dL (3.4-5.0) Albumin/Globulin Ratio 0.9 (1.0-1.7) L Lipase 71 U/L (73-393) L Laboratory Tests 03/06/19 12:20 Laboratory Tests 03/06/19 12:20 EKG EKG [] Radiology/Procedures Radiology/Procedures []PROCEDURE: ABDOMEN COMPLETE EXAM: Abdomen sonogram. HISTORY: Pain. TECHNIQUE: Sonographic imaging of the abdomen was performed. COMPARISON: 10/19/2016. FINDINGS: The liver is normal in size. No focal hepatic lesion is seen. There is mild gallbladder wall thickening. There is suggestion of debris within the gallbladder neck. No convincing gallstone is seen. The common bile duct is normal in caliber. The kidneys are normal in size. There is mild right hydronephrosis. The pancreas, aorta and inferior vena cava are obscured due to bowel gas. The spleen is normal in size. IMPRESSION: 1. Mild gallbladder wall thickening. This may be due to slight gallbladder contraction or intrinsic liver disease. The possibility of cholecystitis is not completely excluded. There is suspected sludge within the gallbladder neck. 2. Mild right hydronephrosis. Electronically signed by: Elaine Sparks MD (03/06/2019 1:10 PM) [facility] DICTATED and SIGNED BY: ELAINE SPARKS MD DATE: 03/06/19 1310 Course & Med Decision Making Course & Med Decision Making Pertinent Labs and Imaging studies reviewed. (See chart for details) This is a 63-year-old female patient presenting to the ED today with generalized abdominal pain, nausea vomiting and diarrhea, symptoms intermittently for 2-3 months. CBC with a normal WBC, CMP with no acute findings, normal liver enzymes. Abdominal ultrasound was noted for cholelithiasis, they could not rule out cholecystitis the physical exam patient does not have any positive Arteaag sign. Her lab work is negative. She is afebrile. She was discharged to home and follow-up with Gen. surgery for further workup including possible PIPIDA Scan Dragon Disclaimer Dragon Disclaimer This electronic medical record was generated, in whole or in part, using a voice recognition dictation system. Departure Departure Impression: Primary Impression: Cholelithiasis Disposition: 01 HOME, SELF-CARE Condition: STABLE Referrals: NANDO PACKER MD (PCP) MARGOTH SHI MD follow up next week Patient Instructions: Cholelithiasis Additional Instructions: You have gall bladder disease. Please call the provided General Surgeon tomorrow and set up a follow up appointment. Scripts Hydrocodone/Apap 5-325 (NORCO 5-325 TABLET) 1 Each Tablet 1 TAB PO Q6-8HRS PRN for PAIN, #12 TAB Prov: MUTUNGA,SILVA SPECIAL SERVICES SUPERVISOR 03/06/19 Ondansetron (ONDANSETRON ODT) 4 Mg Tab.rapdis 1 TAB PO PRN Q6-8HRS, #16 TAB Prov: SILVA GARRETT [employer] SERVICES SUPERVISOR 03/06/19 Problem Qualifiers Primary Impression: Cholelithiasis Cholelithiasis location: gallbladder and bile duct Cholecystitis presence: without cholecystitis Biliary obstruction: without biliary obstruction Qualified Codes: K80.70 - Calculus of gallbladder and bile duct without cholecystitis without obstruction SILVA GARRETT SPECIAL SERVICES SUPERVISOR Mar 06, 2019 14:54
[2019-03-06 14:55] VITALS: BP 150/91
== END 2019-03-06 15:05 | disposition home or self-care (01) ==
LOC: ER 11:08
DX: K80.70 Calculus of gallbladder and bile duct without cholecystitis without obstruction (principal); R19.7 Diarrhea, unspecified; J45.909 Unspecified asthma, uncomplicated; E11.9 Type 2 diabetes mellitus without complications; I10 Essential (primary) hypertension
CPT/HCPCS: 36415; 76700; 80053; 81001; 83690; 85025; 96361; 96374; 99285; J3490; J7030

== ENCOUNTER 2019-10-16 16:24 | Emergency (ER) | payer OTHER ==
[~2019-10-16] VITALS: Ht 149.9 cm; Wt 46.3 kg
[~2019-10-16 16:24] MED LIST changes: +ONDA4TAB12 PO
[2019-10-16 17:55] VITALS: BP 170/98
== END 2019-10-16 19:42 | disposition left against medical advice (07) ==
LOC: ER 16:24
DX: R22.0 Localized swelling, mass and lump, head (principal); Z53.21 Procedure and treatment not carried out due to patient leaving prior to being seen by health care provider

== ENCOUNTER 2021-08-03 14:27 | Emergency (ER) | payer OTHER ==
[~2021-08-03] VITALS: Ht 147.3 cm; Wt 50.1 kg
[~2021-08-03 14:27] MED LIST changes: -ACET1TAB33 PO; +ACET1TAB56 PO
[2021-08-03 15:22] LABS: BASO # 0.1 x10^3/uL (0.0-0.2); BASO % 1 % (0-3); EOS # 0.2 x10^3/uL (0.0-0.7); EOS % 2 % (0-3); HEMATOCRIT 35.7 % (36.0-47.0); HEMOGLOBIN 12.4 g/dL (12.0-15.5); LYMPH # 1.4 x10^3/uL (1.0-4.8); LYMPH % 15 % (24-48); MEAN CORPUSCULAR HEMOGLOBIN 29 pg (25-35); MEAN CORPUSCULAR HGB CONC 35 g/dL (31-37); MEAN CORPUSCULAR VOLUME 82 fL (79-100); MONO # 0.7 x10^3/uL (0.0-1.1); MONO % 7 % (0-9); NEUT # 7.3 x10^3/uL (1.8-7.7); NEUT % 75 % (31-73); PLATELET COUNT 339 x10^3/uL (140-400); RED BLOOD COUNT 4.35 x10^6/uL (3.50-5.40); RED CELL DISTRIBUTION WIDTH 13.6 % (11.5-14.5); WHITE BLOOD COUNT 9.8 x10^3/uL (4.0-11.0)
[2021-08-03 15:31] LABS: BACTERIA,URINE 0 /HPF (0-FEW); RBC,URINE 0 /HPF (0-2); WBC,URINE 0 /HPF (0-4)
[2021-08-03 15:36] LABS: CALCIUM 8.8 mg/dL (8.5-10.1); CREATININE 0.7 mg/dL (0.6-1.0); GFR 83.2
[2021-08-03 15:42] LABS: ALBUMIN 3.9 g/dL (3.4-5.0); MAGNESIUM 1.9 mg/dL (1.8-2.4); TOTAL BILIRUBIN 0.7 mg/dL (0.2-1.0); TOTAL PROTEIN 7.9 g/dL (6.4-8.2)
--- NOTE | 2021-08-03 15:53 | PHYS DOC ---
Past Medical History Past Medical History: Asthma, Diabetes-Type II, Hypertension Additional Past Medical Histor: KIDNEYS? (BANDAR CHAMBERLAIN APRN) Past Surgical History: Other Additional Past Surgical Histo: R SHOULDER (BANDAR CHAMBERLAIN APRN) Smoking Status: Never Smoker Alcohol Use: None Drug Use: None (BANDAR CHAMBERLAIN APRN) General Adult EDM: Chief Complaint: ABDOMINAL PAIN HPI: HPI: Patient is a 66-year-old Japanese speaking female who complains of 5 days of abdominal pain that radiates through to her back. Patient denies injury to her abdomen or her back. Patient denies chest pains, denies shortness of breath chest or nasal congestion, denies nausea, vomiting, diarrhea or constipation, denies seeing blood in her urine or in her stool, denies increased urinary frequency, urinary pressure, hematuria or other dysuria. Patient did not take pain medication for this pain at home, states she has a history of asthma, type 2 diabetes, and hypertension. Patient rates her abdominal pain at a 7 out of 10, states it is at its worst a 10 out of 10, and low as a 5 out of 10. Patient denies aggravating or relieving factors. (BANDAR CHAMBERLAIN APRN) Review of Systems: Review of Systems: 14 body systems of review of systems have been reviewed. See HPI for pertinent positives and negative responses, otherwise all other systems are negative, nonpertinent or noncontributory. Constitutional: Negative except as outlined in HPI above. Skin: Negative except as outlined in HPI above. Eyes: Negative except as outlined in HPI above. HENT: Negative except as outlined in HPI above. Respiratory: Negative except as outlined in HPI above. Cardiovascular: Negative except as outlined in HPI above. GI: Negative except as outlined in HPI above. : Negative except as outlined in HPI above. Musculoskeletal: Negative except as outlined in HPI above. Integument: Negative except as outlined in HPI above. Neurologic: Negative except as outlined in HPI above. Endocrine: Negative except as outlined in HPI above. Lymphatic: Negative except as outlined in HPI above. Psychiatric: Negative except as outlined in HPI above. (BANDAR CHAMBERLAIN APRN) Heart Score: C/O Chest Pain: No Risk Factors: Risk Factors: DM, Current or recent (<one month) smoker, HTN, HLP, family histo ry of CAD, obesity. Risk Scores: Score 0 - 3: 2.5% MACE over next 6 weeks - Discharge Home Score 4 - 6: 20.3% MACE over next 6 weeks - Admit for Clinical Observation Score 7 - 10: 72.7% MACE over next 6 weeks - Early Invasive Strategies (BANDAR CHAMBERLAIN APRN) Current Medications: Current Medications Medications (Trade) Dose Ordered Sig/Cruz Start Time Stop Time Status Last Admin Dose Admin Iohexol (Omnipaque 350 Mg/ml) 90 ml 1X ONCE 08/03/21 16:00 08/03/21 16:01 (BANDAR CHAMBERLAIN APRN) Allergies: Allergies: Allergies Coded Allergies Type Severity Reaction Last Updated Verified No Known Drug Allergies 10/19/16 No (BANDAR CHAMBERLAIN APRN) Physical Exam: PE: Constitutional: Well developed, well nourished, no acute distress, non-toxic appearance. 66-year-old female in no apparent distress. HENT: Normocephalic, atraumatic. Eyes: Conjunctiva normal, no discharge. Neck: Normal range of motion, no stridor. Cardiovascular: No cyanosis appreciated, distal cap refill less than 2 seconds. Lungs & Thorax: Patient is in no respiratory distress, no audible adventitious lung sounds appreciated. Abdomen: No visual abnormalities noted, no abnormal skin discoloration of the abdomen appreciated, generalized pain to palpation all quadrants of the abdomen, normal bowel sounds all 4 quadrants. Abdomen is soft, round. Skin: Warm, dry, no erythema, no rash. Back: No tenderness, no deformities. Extremities: No tenderness, no cyanosis, no clubbing, ROM intact, no edema. Neurologic: Alert and oriented X 3, normal motor function, normal sensory fu nction, no focal deficits noted. Psychologic: Affect normal, judgement normal, mood normal. (BANDAR CHAMBERLAIN APRN) Current Patient Data: Labs: Laboratory Tests Test 08/03/21 14:50 08/03/21 15:07 Urine Collection Type Unknown Urine Color (Auto) Colorless Urine Turbidity Clear Urine pH (Auto) 6.5 (<5.0-8.0) Urine Specific [place] 1.005 (1.000-1.030) Urine Protein (Auto) Negative mg/dL (Negative) Urine Glucose (Auto)(UA) 100 mg/dL (Negative) Urine Ketones (Auto) Negative mg/dL (Negative) Urine Blood (Auto) Negative (Negative) Urine Nitrite Negative (Negative) Urine Bilirubin (Auto) Negative (Negative) Urine Urobilinogen (Auto) Normal mg/dL (Normal) Urine Leukocyte Esterase (Auto) Negative (Negative) Urine RBC 0 /HPF (0-2) Urine WBC 0 /HPF (0-4) Urine Squamous Epithelial Cells Few /LPF Urine Bacteria 0 /HPF (0-FEW) White Blood Count 9.8 x10^3/uL (4.0-11.0) Red Blood Count 4.35 x10^6/uL (3.50-5.40) Hemoglobin 12.4 g/dL (12.0-15.5) Hematocrit 35.7 % (36.0-47.0) L Mean Corpuscular Volume 82 fL (79-100) Mean Corpuscular Hemoglobin 29 pg (25-35) Mean Corpuscular Hemoglobin Concent 35 g/dL (31-37) Red Cell Distribution Width 13.6 % (11.5-14.5) Platelet Count 339 x10^3/uL (140-400) Neutrophils (%) (Auto) 75 % (31-73) H Lymphocytes (%) (Auto) 15 % (24-48) L Monocytes (%) (Auto) 7 % (0-9) Eosinophils (%) (Auto) 2 % (0-3) Basophils (%) (Auto) 1 % (0-3) Neutrophils # (Auto) 7.3 x10^3/uL (1.8-7.7) Lymphocytes # (Auto) 1.4 x10^3/uL (1.0-4.8) Monocytes # (Auto) 0.7 x10^3/uL (0.0-1.1) Eosinophils # (Auto) 0.2 x10^3/uL (0.0-0.7) Basophils # (Auto) 0.1 x10^3/uL (0.0-0.2) Sodium Level 136 mmol/L (136-145) Potassium Level 4.0 mmol/L (3.5-5.1) Chloride Level 101 mmol/L (98-107) Carbon Dioxide Level 23 mmol/L (21-32) Anion Gap 12 (6-14) Blood Urea Nitrogen 8 mg/dL (7-20) Creatinine 0.7 mg/dL (0.6-1.0) Estimated GFR (Cockcroft-Gault) 83.2 BUN/Creatinine Ratio 11 (6-20) Glucose Level 159 mg/dL (70-99) H Calcium Level 8.8 mg/dL (8.5-10.1) Magnesium Level 1.9 mg/dL (1.8-2.4) Total Bilirubin 0.7 mg/dL (0.2-1.0) Aspartate Amino Transferase (AST) 18 U/L (15-37) Alanine Aminotransferase (ALT) 18 U/L (14-59) Alkaline Phosphatase 104 U/L (46-116) Troponin I High Sensitivity 6 ng/L (4-50) Total Protein 7.9 g/dL (6.4-8.2) Albumin 3.9 g/dL (3.4-5.0) Albumin/Globulin Ratio 1.0 (1.0-1.7) Lipase 90 U/L (73-393) Laboratory Tests 08/03/21 15:07 Laboratory Tests 08/03/21 15:07 Vital Signs: Vital Signs Date Time Temp Pulse Resp B/P (MAP) Pulse Ox O2 Delivery O2 Flow Rate FiO2 08/03/21 14:41 97.5 79 20 151/85 (107) 96 Room Air 97.5 (BANDAR CHAMBERLAIN APRN) EKG: EKG: EKG performed at 1503 by ED nursing staff shows a sinus tachycardia heart rate 107 bpm without other ectopy, NM interval 0.168, QTc interval 0.454, no acute STEMI, no ACS, no acute ischemia appreciated, EKG interpreted by ED attending physician Dr. Jones. (BANDAR CHAMBERLAIN APRN) Radiology/Procedures: Radiology/Procedures: REASON: Severe abdominal pain that radiates through to back. PROCEDURE: CT ANGIO CHEST ABD PELVIS EXAM: CT ANGIOGRAM CHEST, ABDOMEN, AND PELVIS WITH AND WITHOUT CONTRAST INDICATION: Severe abdominal pain radiating to back COMPARISON: CT chest 01/23/2018. CT abdomen and pelvis 10/19/2016 TECHNIQUE: Helical CT imaging performed of the chest, abdomen and pelvis after administration of 90 mL Omnipaque 350 intravenous contrast. Sagittal and coronal reformats were obtained. One or more of the following individualized dose reduction techniques were uti lized for this examination: 1. Automated exposure control 2. Adjustment of the mA and/or kV according to patient size 3. Use of iterative reconstruction technique. FINDINGS: VASCULATURE: No aortic aneurysm, dissection, or intramural hematoma.. Great vessel origins are widely patent. Abdominal branch origins are widely patent. The iliac arteries are normal in caliber and patent. There is minimal calcified atherosclerosis. CHEST: Thyroid gland and thoracic inlet: Thyroid gland is mildly heterogeneous with several subcentimeter hypodensities. Heart and great vessels: The heart is normal in size. No pericardial effusion. Central pulmonary arteries are clear. Mediastinum and addie: No lymphadenopathy. Lungs and pleura: Mild centrilobular emphysema. There is pleural-parenchymal scarring in apices including a 1.6 x 1.1 cm nodular opacity in the left apex that is unchanged from 09/04/2017. A 3 mm nodule in the right lower lobe is unchanged from 01/23/2018 (image 92, series 2). A 5 mm in thickness nodule along the minor fissure are unchanged. (image 83 and 82, series 2). No pleural effusion. Chest wall and axillae: No axillary lymphadenopathy. Bones: No acute osseous abnormality. ABDOMEN AND PELVIS: Liver: Normal. Gallbladder/Biliary Tree: Normal. Pancreas: Normal. Spleen: Normal. Adrenal Glands: Normal. Kidneys/Ureters/Bladder: No hydronephrosis. Ureters and bladder are normal. Reproductive Organs: Uterus is anteverted. No adnexal mass. Stomach, small bowel, and colon: Small hiatal hernia. No small bowel obstruction. The appendix is normal. The colon is unremarkable. Lymph Nodes: No lymphadenopathy. Peritoneum and retroperitoneum: No free fluid or free air. Bones: There is transitional anatomy lumbosacral junction. No acute osseous abnormality. IMPRESSION: 1. No aortic dissection or other acute abnormality. 2. Mild centrilobular emphysema. 3. 1.6 cm nodular opacity in the left apex, presumably pleural parenchymal scarring and unchanged from 2018. There are a few additional small pulmonary nodules that are unchanged from 2018. 4. Small hiatal hernia. Electronically signed by: Meenakshi Martinez MD (08/03/2021 4:51 PM) [facility] (BANDAR CHAMBERLAIN APRN) Course & Med Decision Making: Course & Med Decision Making Pertinent Labs and Imaging studies reviewed. (See chart for details) 66-year-old female, vital signs reviewed, presents to the emergency department concerning central abdominal pain that radiates through to her back for the past 5 days. Patient's physical examination suspicious for gastritis or other abdominal process, will order CBC, CMP, lipase, CT chest abdomen pelvis, magn esium level, high-sensitivity troponin I, urinalysis assay. We will give 1 L normal saline, ondansetron for prophylaxis of nausea, 4 mg morphine IV. Will reevaluate after period of time. Patient's labs are unremarkable, the patient's urine is not infected, upon reevaluation of the patient, patient reports good pain relief stating current pain is a 1-[address] abdomen pelvis is unremarkable for acute process. Discussed findings with patient, discussed strict follow-up with Dr. Noble this coming week, return to ER precautions or concerns were reviewed, patient gave verbal understanding and is amenable to ED discharge planning. (BANDAR CHAMBERLAIN APRN) Dragon Disclaimer: Dragon Disclaimer: This electronic medical record was generated, in whole or in part, using a voice recognition dictation system. (BANDAR CHAMBERLAIN APRN) Departure Departure Impression: Primary Impression: Abdominal pain Qualified Codes: R10.84 - Generalized abdominal pain Disposition: HOME / SELF CARE / HOMELESS Condition: GOOD Referrals: NANDO PACKER MD (PCP) Patient Instructions: Abdominal Pain (Nonspecific) Additional Instructions: You were seen today in the emergency department for abdominal pain. Your lab work did not show any concerning findings, your urine was not infected, the CT of your chest abdomen pelvis did not show any concerning findings. You were given IV pain medicine which seemed to help some. Please follow-up with your primary care physician Dr. Noble this week for ongoing pain. You may use [id number] Tylenol or Motrin for ongoing pain and discomfort. Please call tomorrow for the soonest appointment. Thank you for visiting our Emergency Department. It was a pleasure taking care of you today in the emergency department and we appreciate you trusting us with your care. If any additional problems come up don't hesitate to return to visit us. Please follow up with your primary care provider so they can plan additional care if needed and know about the problem that you had. If symptoms worsen come back to the Emergency Department. Any concerning symptoms that start such as chest pain, shortness of air, weakness or numbness on one side of the body, running high fevers or any other concerning symptoms return to the ER. Attending Signature I have participated in the care of this patient and I have reviewed and agree with all pertinent clinical information above including history, exam, and recommendations. (JOSE JUAN JONES DO) BANDAR CHAMBERLAIN APRN August 03, 2021 15:53 JOSE JUAN JONES DO Aug 10, 2021 05:51
[2021-08-03] MEDS ORDERED: IOHEXOL 350 MG/ML 100 ML VIAL. IV ONE (16:00)
[2021-08-03] MEDS ORDERED: ONDANSETRON PF 4 MG/2 ML VIAL. IVP ONE (16:00)
[2021-08-03] MEDS ORDERED: CONTRAST GIVEN. MC PRN (16:00)
[2021-08-03] MEDS ORDERED: IV NORMAL SALINE 1000ML BAG 1,000 ML IV ONE (16:00)
[2021-08-03] MEDS ORDERED: MORPHINE SULFATE 4 MG/ML INJ. IVP ONE (16:00)
--- NOTE | 2021-08-03 16:05 | EKG ---
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
--- NOTE | 2021-08-03 16:53 | RAD ---
EXAM: CT ANGIOGRAM CHEST, ABDOMEN, AND PELVIS WITH AND WITHOUT CONTRAST INDICATION: Severe abdominal pain radiating to back COMPARISON: CT chest 01/23/2018. CT abdomen and pelvis 10/19/2016 TECHNIQUE: Helical CT imaging performed of the chest, abdomen and pelvis after administration of 90 m L Omnipaque 350 intravenous contrast. Sagittal and coronal reformats were obtained. One or more of the following individualized dose reduction techniques were utilized for this examinat ion: 1. Automated exposure control 2. Adjustment of the mA and/or kV according to patient size 3. Use of iterative reconstruction technique. FINDINGS: VASCULATURE: No aortic aneurysm, dissection, or intramural hematoma.. Great vessel origins are widely patent. Abdominal branch origins are widely patent. The iliac arteries are normal in caliber and pat ent. There is minimal calcified atherosclerosis. CHEST: Thyroid gland and thoracic inlet: Thyroid gland is mildly heterogeneous with several subcentimeter hy podensities. Heart and great vessels: The heart is normal in size. No pericardial effusion. Central pulmonary grey juventino are clear. Mediastinum and addie: No lymphadenopathy. Lungs and pleura: Mild centrilobular emphysema. There is pleural-parenchymal scarring in apices inclu ding a 1.6 x 1.1 cm nodular opacity in the left apex that is unchanged from 09/04/2017. A 3 mm nodule in the right lower lobe is unchanged from 01/23/2018 (image 92, series 2). A 5 mm in thickness nodule along the minor fissure are unchanged. (image 83 and 82, series 2). No pleural effusion. Chest wall and axillae: No axillary lymphadenopathy. Bones: No acute osseous abnormality. ABDOMEN AND PELVIS: Liver: Normal. Gallbladder/Biliary Tree: Normal. Pancreas: Normal. Spleen: Normal. Adrenal Glands: Normal. Kidneys/Ureters/Bladder: No hydronephrosis. Ureters and bladder are normal. Reproductive Organs: Uterus is anteverted. No adnexal mass. Stomach, small bowel, and colon: Small hiatal hernia. No small bowel obstruction. The appendix is nor mal. The colon is unremarkable. Lymph Nodes: No lymphadenopathy. Peritoneum and retroperitoneum: No free fluid or free air. Bones: There is transitional anatomy lumbosacral junction. No acute osseous abnormality. IMPRESSION: 1. No aortic dissection or other acute abnormality. 2. Mild centrilobular emphysema. 3. 1.6 cm nodular opacity in the left apex, presumably pleural parenchymal scarring and unchanged fr om 2018. There are a few additional small pulmonary nodules that are unchanged from 2018. 4. Small hiatal hernia. Electronically signed by: Meenakshi Martinez MD (08/03/2021 4:51 PM) [facility]
[2021-08-03 17:34] VITALS: BP 112/60
== END 2021-08-03 18:51 | disposition home or self-care (01) ==
LOC: ER 14:27
DX: R10.84 Generalized abdominal pain (principal); J45.909 Unspecified asthma, uncomplicated; E11.9 Type 2 diabetes mellitus without complications; I10 Essential (primary) hypertension
CPT/HCPCS: 36415; 71275; 74174; 80053; 81001; 83690; 83735; 84484; 85025; 93005; 96361; 96374; 96375; 99285; J2270; J2405; J7030; Q9967